=== PATIENT | female | born 2000 | race Two or more races ===

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

== ENCOUNTER 2021-01-21 13:30 | Emergency (ER) | payer OTHER ==
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
[2021-01-21] MEDS ORDERED: SODIUM CHLORIDE 0.9% 1,000 ML IV STA (14:07)
--- NOTE | 2021-01-21 14:08 | ED Physician Documentation ---
PD HPI ABD PAIN - Stated complaint Stated Complaint: ABDOMINAL PX - Chief complaint Chief Complaint: Abd Pain - History obtained from History obtained from: Patient - Additional information Additional information: 20-year-old woman G1, P1 status post about a month ago presents with 2 days of central abdominal pain, vomiting and diarrhea. No fevers or sick contacts. No history of other abdominal surgeries. Review of Systems Ten Systems: 10 systems reviewed and negative Constitutional: denies: Fever, Chills GI: reports: Abdominal Pain, Nausea, Diarrhea. 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 : None HEENT: None Psych: None Musculoskeletal: None Derm: None - Past Surgical History Past Surgical History: No - Present Medications Home Medications: Ambulatory Orders Medication Instructions Recorded Confirmed Loperamide [Imodium] 2 mg PO QID PRN #10 cap 01/21/21 Ondansetron Odt [Zofran] 4 mg TL Q6H PRN #10 tablet 01/21/21 No122/Iron/Folic Acid 1 tab PO DAILY 01/21/21 01/21/21 [ Multi Tablet] - Allergies Allergies/Adverse Reactions: Allergies Allergy/AdvReac Type Severity Reaction Status Date / Time No Known Drug Allergies Allergy Verified 01/21/21 13:45 - Social History Does the pt smoke?: No Smoking Status: Never smoker Does the pt drink ETOH?: No Does the pt have substance abuse?: No - Immunizations Immunizations are current?: No - POLST Patient has POLST: No PD ED PE NORMAL - Vitals Vital signs reviewed: Yes - General General: Alert and oriented X 3, No acute distress - HEENT HEENT: PERRL, EOMI - Neck Neck: Supple, no meningeal sign, No bony TTP - Cardiac Cardiac: RRR, No murmur - Respiratory Respiratory: No respiratory distress, Clear bilaterally - Abdomen Abdomen: Normal bowel sounds, Soft, Other (Focal but mild RLQ TTP) - Back Back: No CVA TTP, No spinal TTP - Derm Derm: Normal color, Warm and dry - Extremities Extremities: No edema, No calf tenderness / cord - Neuro Neuro: Alert and oriented X 3, Normal speech Results - Vitals Vitals: Vital Signs - 24 hr 01/21/21 13:40 Temperature 36.2 C L Heart Rate 93 Respiratory 14 Rate Blood Pressure 135/65 H O2 Saturation 99 Oxygen O2 Source Room air - Labs Labs: Laboratory Tests 01/21/21 01/21/21 01/21/21 13:50 13:55 13:55 WBC 8.3 RBC 4.20 Hgb 11.7 L Hct 36.2 L MCV 86.2 MCH 27.9 MCHC 32.3 RDW 12.7 Plt Count 411 MPV 8.1 Neut # (Auto) 5.3 Lymph # (Auto) 1.8 [place] # (Auto) 0.4 Eos # (Auto) 0.7 Baso # (Auto) 0.1 Absolute Nucleated RBC 0.00 Nucleated RBC % 0.0 Sodium 138 Potassium 3.3 L Chloride 104 Carbon Dioxide 24 Anion Gap 10.0 BUN 7 Creatinine 0.7 Estimated GFR (MDRD) 108 Glucose 117 H Calcium 9.0 Total Bilirubin 0.9 AST 25 ALT 17 Alkaline Phosphatase 103 Total Protein 8.2 Albumin 4.0 Globulin 4.2 Albumin/Globulin Ratio 1.0 Lipase 31 Urine Color YELLOW Urine Clarity CLEAR Urine pH 6.0 Ur Specific [place] 1.020 Urine Protein NEGATIVE Urine Glucose (UA) NEGATIVE Urine Ketones NEGATIVE Urine Occult Blood NEGATIVE Urine Nitrite NEGATIVE Urine Bilirubin NEGATIVE Urine Urobilinogen 0.2 (NORMAL) Ur Leukocyte Esterase NEGATIVE Ur Microscopic Review NOT INDICATED Urine Culture Comments NOT INDICATED PD MEDICAL DECISION MAKING - ED course ED course: 20-year-old woman presents with what sounds like gastroenteritis by history and initial evaluation. She was noted to be tender in the right lower quadrant and therefore labs and a CT were done. Labs were notable for a normal white count and CT showing a normal and appendix but mild inflammatory stranding in the right lower pelvis. Presume given the timing that this is related to post C- section status as to as opposed to the other differential diagnoses relayed on the radiologist read. She declined medications while here and infected and 1 medications to go home with but acquiesced to a as needed prescription for nausea and diarrhea. She was given close return precautions. Departure - Departure Disposition: Home, Self Care Clinical Impression: Vomiting Qualifiers: Vomiting type: unspecified Vomiting Intractability: non-intractable Nausea presence: with nausea Qualified Code(s): R11.2 - Nausea with vomiting, unspecified Abdominal pain Qualifiers: Abdominal location: right lower quadrant Qualified Code(s): R10.31 - Right lower quadrant pain Diarrhea Qualifiers: Diarrhea type: unspecified type Qualified Code(s): R19.7 - Diarrhea, unspecified Condition: Good Record reviewed to determine appropriate education?: Yes Instructions: ED Nausea Vomiting Prescriptions: Loperamide [Imodium] 2 mg PO QID PRN #10 cap PRN Reason: Diarrhea Ondansetron Odt [Zofran] 4 mg TL Q6H PRN #10 tablet PRN Reason: Nausea / Vomiting Comments: As discussed, there is some mild inflammation in your pelvis. Presume this is related to your a month ago. Your other symptoms are more consistent with what is called gastroenteritis. This is a disease that should resolve quickly. If not better in 24 hours, or anytime if worsening please return for reevaluation.
[2021-01-21 14:10] LABS: BASOPHILS # (AUTO) 0.1 10^3/uL (0.0-0.1); BASOPHILS % (AUTO) 0.8 %; EOSINOPHILS # (AUTO) 0.7 10^3/uL (0.0-0.7); EOSINOPHILS % (AUTO) 8.6 %; HCT - HEMATOCRIT 36.2 % (37.0-47.0); HGB - HEMOGLOBIN 11.7 g/dL (12.0-16.0); LYMPHOCYTES # (AUTO) 1.8 10^3/uL (1.5-3.5); LYMPHOCYTES % (AUTO) 21.4 %; MEAN CORPUSCULAR HEMOGLOBIN 27.9 pg (27.0-31.0); MEAN CORPUSCULAR HGB CONC 32.3 g/dL (32.0-36.0); MEAN CORPUSCULAR VOLUME 86.2 fL (81.0-99.0); MEAN PLATELET VOLUME 8.1 fL (7.9-10.8); MONOCYTES # (AUTO) 0.4 10^3/uL (0.0-1.0); MONOCYTES % (AUTO) 4.7 %; NEUTROPHILS # (AUTO) 5.3 10^3/uL (1.5-6.6); NEUTROPHILS % (AUTO) 64.3 %; PLT - PLATELET COUNT 411 10^3/uL (130-450); RED CELL DISTRIBUTION WIDTH 12.7 % (12.0-15.0); WHITE BLOOD COUNT 8.3 x10^3/uL (4.8-10.8)
[2021-01-21 14:10] LABS: BILIRUBIN,URINE NEGATIVE (NEGATIVE); GLUCOSE, URINE (UA) NEGATIVE (NEGATIVE); KETONES,URINE (UA) NEGATIVE (NEGATIVE); LEUKOCYTE ESTERASE, URINE NEGATIVE (NEGATIVE); NITRITE,URINE NEGATIVE (NEGATIVE); OCCULT BLOOD,URINE NEGATIVE (NEGATIVE); PROTEIN,URINE NEGATIVE (NEGATIVE); UROBILINOGEN,URINE 0.2 (NORMAL) E.U./dL (NORMAL)
[2021-01-21 14:14] LABS: CLARITY,URINE CLEAR (CLEAR)
[2021-01-21] MEDS ORDERED: IOPAMIDOL-300 100 ML VIAL ONE (14:15)
[2021-01-21 14:20] LABS: BILIRUBIN,TOTAL 0.9 mg/dL (0.2-1.0); CREATININE 0.7 mg/dL (0.4-1.0); POTASSIUM 3.3 mmol/L (3.5-5.0); TOTAL PROTEIN 8.2 g/dL (6.7-8.2)
[2021-01-21] MEDS ORDERED: IOPAMIDOL-300 100 ML VIAL IVP ONE (14:51)
--- NOTE | 2021-01-21 15:02 | CT Report ---
PROCEDURE: Abdomen/Pelvis W INDICATIONS: RLQ TTP iV only CONTRAST: IV CONTRAST: Isovue 300 ml: 100 PO CONTRAST: *NO PO CONTRAST TECHNIQUE: After the administration of IV contrast, 5 mm thick sections acquired from the diaphragms to the symp hysis. 5 mm thick coronal and sagittal reformats were acquired. For radiation dose reduction, the f ollowing was used: automated exposure control, adjustment of mA and/or kV according to patient size. COMPARISON: None. FINDINGS: ABDOMEN: Lung bases: Normal Heart:Normal. Liver: Normal. Gallbladder: Contracted otherwise unremarkable Bile ducts: Normal. Pancreas: Normal. Spleen: Normal. Adrenals: Normal. Kidneys and ureters: Normal. Stomach and duodenum: The appendix appears normal. However, more inferiorly there are few areas of fa t stranding seen in the right lower pelvis, adjacent to bowel loops and uterus/ovaries. The exact vaughn ology is unknown. No abscess is seen. No evidence of bowel obstruction. Other: No free fluid or air. There is mild stranding seen within the anterior pannus Abdominal nodes: Normal. Aorta: Normal. IVC: Normal. Ventral wall: Normal. PELVIS: Bladder: Decompressed Pelvic nodes: Normal. Inguinal: No hernia. Bones: No vertebral body compression fracture. No suspicious bone lesion. IMPRESSION: Appendix appears normal however mild inflammatory stranding is seen in the right lower pelvis. Exact etiology is unknown. Differential includes a low-grade enteritis, pelvic inflammatory disease or othe r gynecological condition. This could be further assessed with pelvic ultrasound as clinically warran audra. Please correlate with negative test as clinically appropriate. Reviewed by: Collins Nieves MD on 01/21/2021 3:00 PM PDT Approved by: Collins Nieves MD on 01/21/2021 3:00 PM PDT Station ID: [id number]
[2021-01-21 15:33] VITALS: BP 126/67
== END 2021-01-21 15:35 | disposition home or self-care (01) ==
LOC: ED 13:30
DX: R11.2 Nausea with vomiting, unspecified (principal); R10.31 Right lower quadrant pain; R19.7 Diarrhea, unspecified
CPT/HCPCS: 36415; 74177; 80053; 81003; 83690; 85025; 99283; 99284; Q9967; 81001; 87086

== ENCOUNTER 2021-06-18 10:25 | Emergency (ER) | payer OTHER ==
[2021-06-18 10:32] VITALS: BP 150/88
--- NOTE | 2021-06-18 11:03 | ED Physician Documentation ---
PD HPI ABD PAIN - Stated complaint Stated Complaint: ABD CRAMPING - Chief complaint Chief Complaint: Abd Pain - History obtained from History obtained from: Patient - Additional information Additional information: 20-year-old with history of , otherwise no history of abdominal surgeries presents with upper abdominal pain of 2 days duration. Not particularly worse after eating but states she always eats very little. She is never had it before. She has had some mild nausea with it but no vomiting or changes in bowel movements. She also notes 1 month of unrelated femur pain on the left that is kind of random and intermittent. 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 - Present Medications Home Medications: Ambulatory Orders Medication Instructions Recorded Confirmed Loperamide [Imodium] 2 mg PO QID PRN #10 cap 01/21/21 Ondansetron Odt [Zofran] 4 mg TL Q6H PRN #10 tablet 01/21/21 No122/Iron/Folic Acid 1 tab PO DAILY 01/21/21 01/21/21 [ Multi Tablet] Omeprazole 40 mg PO DAILY #30 cap 06/18/21 - Allergies Allergies/Adverse Reactions: Allergies Allergy/AdvReac Type Severity Reaction Status Date / Time No Known Drug Allergies Allergy Verified 06/18/21 10:30 - Social History Does the pt smoke?: No Smoking Status: Never smoker Does the pt drink ETOH?: No Does the pt have substance abuse?: No - Immunizations Immunizations are current?: No - POLST Patient has POLST: No PD ED PE NORMAL - Vitals Vital signs reviewed: Yes - General General: Alert and oriented X 3, No acute distress - HEENT HEENT: PERRL, EOMI - Neck Neck: Supple, no meningeal sign, No bony TTP - Cardiac Cardiac: RRR, No murmur - Respiratory Respiratory: No respiratory distress, Clear bilaterally - Abdomen Abdomen: Normal bowel sounds, Other (Focally tender in the right upper quadrant but not exquisitely tender. No epigastric or other abdominal tenderness.) - Back Back: No CVA TTP, No spinal TTP - Derm Derm: Normal color, Warm and dry - Extremities Extremities: Other (Very mild tenderness of the lateral thigh on the left which she notes is the site of her leg pain.) - Neuro Neuro: Alert and oriented X 3, Normal speech Results - Vitals Vitals: Vital Signs - 24 hr 06/18/21 10:30 Temperature 36.5 C Heart Rate 85 Respiratory 16 Rate Blood Pressure 150/88 H O2 Saturation 98 Oxygen O2 Source Room air - Labs Labs: Laboratory Tests 06/18/21 06/18/21 06/18/21 10:58 11:08 11:08 WBC 10.0 RBC 4.67 Hgb 12.9 Hct 39.1 MCV 83.7 MCH 27.6 MCHC 33.0 RDW 13.5 Plt Count 424 MPV 7.9 Neut # (Auto) 7.1 H Lymph # (Auto) 2.0 [place] # (Auto) 0.6 Eos # (Auto) 0.1 Baso # (Auto) 0.1 Absolute Nucleated RBC 0.00 Nucleated RBC % 0.0 Sodium 140 Potassium 3.8 Chloride 104 Carbon Dioxide 24 Anion Gap 12.0 BUN 8 Creatinine 0.7 Estimated GFR (MDRD) 108 Glucose 97 Calcium 9.4 Total Bilirubin 0.9 AST 24 ALT 20 Alkaline Phosphatase 91 Total Protein 8.1 Albumin 4.2 Globulin 3.9 Albumin/Globulin Ratio 1.1 Lipase 33 Urine Color YELLOW Urine Clarity HAZY Urine pH 6.0 Ur Specific [place] 1.025 Urine Protein NEGATIVE Urine Glucose (UA) NEGATIVE Urine Ketones NEGATIVE Urine Occult Blood NEGATIVE Urine Nitrite NEGATIVE Urine Bilirubin NEGATIVE Urine Urobilinogen 0.2 (NORMAL) Ur Leukocyte Esterase TRACE H Urine RBC 0-5 Urine WBC 11-25 H Ur Squamous Epith Cells MOD Squamous H Urine Bacteria Moderate H Ur Microscopic Review INDICATED Urine Culture Comments NOT INDICATED Urine HCG, Qual NEGATIVE - Rads (name of study) 2 view x-ray of the right femur was normal Radiology: EMP read contemporaneously abd sono Radiology: EMP read contemporaneously (neg) PD MEDICAL DECISION MAKING - ED course ED course: 20-year-old presents with epigastric pain and an ancillary complaint of left thigh pain, the thigh pain is likely related to iliotibial band syndrome given the location. She was given stretches to do for this diagnosis and a PPI for presumed gastritis noting normal labs and negative right upper quadrant ultrasound. Departure - Departure Disposition: 01 Home, Self Care Clinical Impression: Iliotibial band syndrome of left side Gastritis Qualifiers: Gastritis type: unspecified gastritis Chronicity: acute Gastritis bleeding: wi thout bleeding Qualified Code(s): K29.00 - Acute gastritis without bleeding Condition: Good Record reviewed to determine appropriate education?: Yes Instructions: ED Gastritis, Iliotibial Band Stretch Prescriptions: Omeprazole 40 mg PO DAILY #30 cap Comments: Do the stretches as shown for the left leg, I think that will help a lot over the next few days to week. Also [facility] the [facility] [place]. Return for new or worsening symptoms. Follow-up with your primary care physician, next available appointment.
[2021-06-18 11:13] LABS: BASOPHILS # (AUTO) 0.1 10^3/uL (0.0-0.1); BASOPHILS % (AUTO) 0.6 %; EOSINOPHILS # (AUTO) 0.1 10^3/uL (0.0-0.7); EOSINOPHILS % (AUTO) 1.4 %; HCT - HEMATOCRIT 39.1 % (37.0-47.0); HGB - HEMOGLOBIN 12.9 g/dL (12.0-16.0); LYMPHOCYTES % (AUTO) 20.3 %; MEAN CORPUSCULAR HEMOGLOBIN 27.6 pg (27.0-31.0); MEAN CORPUSCULAR VOLUME 83.7 fL (81.0-99.0); MEAN PLATELET VOLUME 7.9 fL (7.9-10.8); MONOCYTES # (AUTO) 0.6 10^3/uL (0.0-1.0); MONOCYTES % (AUTO) 6.2 %; NEUTROPHILS # (AUTO) 7.1 10^3/uL (1.5-6.6); NEUTROPHILS % (AUTO) 71.2 %; PLT - PLATELET COUNT 424 10^3/uL (130-450); RED BLOOD COUNT 4.67 10^6/uL (4.20-5.40); RED CELL DISTRIBUTION WIDTH 13.5 % (12.0-15.0)
[2021-06-18 11:14] LABS: BILIRUBIN,URINE NEGATIVE (NEGATIVE); GLUCOSE, URINE (UA) NEGATIVE (NEGATIVE); KETONES,URINE (UA) NEGATIVE (NEGATIVE); LEUKOCYTE ESTERASE, URINE TRACE (NEGATIVE); NITRITE,URINE NEGATIVE (NEGATIVE); OCCULT BLOOD,URINE NEGATIVE (NEGATIVE); PROTEIN,URINE NEGATIVE (NEGATIVE); UROBILINOGEN,URINE 0.2 (NORMAL) E.U./dL (NORMAL)
[2021-06-18 11:16] LABS: CLARITY,URINE HAZY (CLEAR); HCG UR QUAL NEGATIVE
[2021-06-18 11:25] LABS: BACTERIA,URINE Moderate /HPF (None Seen); RBC,URINE 0-5 /HPF (0-5); SQUAMOUS EPITHELIAL CELL,UR MOD Squamous (<= Few)
[2021-06-18 11:28] LABS: ALBUMIN 4.2 g/dL (3.2-5.5); ALBUMIN/GLOBULIN RATIO 1.1 (1.0-2.2); BILIRUBIN,TOTAL 0.9 mg/dL (0.2-1.0); CALCIUM 9.4 mg/dL (8.5-10.3); CREATININE 0.7 mg/dL (0.4-1.0); POTASSIUM 3.8 mmol/L (3.5-5.0); TOTAL PROTEIN 8.1 g/dL (6.7-8.2)
--- NOTE | 2021-06-18 12:08 | XRAY Report ---
PROCEDURE: Femur 2V LT INDICATIONS: leg pain TECHNIQUE: 4 views of the femur were acquired. COMPARISON: None. FINDINGS: Bones: No fractures or dislocations. No suspicious bony lesions. Soft tissues: No suspicious soft tissue calcifications or masses. IMPRESSION: No femoral fracture or dislocation. No gross soft tissue abnormality. Reviewed by: Remberto Laura MD on 06/18/2021 12:07 PM PDT Approved by: Remberto Laura MD on 06/18/2021 12:07 PM PDT Station ID: [id number]
--- NOTE | 2021-06-18 13:01 | Ultrasound Report ---
PROCEDURE: Abdomen Limited INDICATIONS: Right upper quadrant abdominal pain TECHNIQUE: Real-time focused scanning was performed of the abdomen, with image documentation. COMPARISON: CT abdomen and pelvis 01/21/2021 FINDINGS: Normal appearance of the liver. No intrahepatic or extra hepatic biliary ductal dilatation . Normally distended gallbladder without wall thickening or pericholecystic fluid. Visualized portion s of the pancreas are normal. Right kidney demonstrates no shadowing calculus or hydronephrosis. IMPRESSION: Normal study. Reviewed by: Jamari Muse MD on 06/18/2021 1:00 PM PDT Approved by: Jamari Muse MD on 06/18/2021 1:00 PM PDT Station ID: [id number]
== END 2021-06-18 12:48 | disposition home or self-care (01) ==
LOC: ED 10:25
DX: K29.00 Acute gastritis without bleeding (principal); M76.32 Iliotibial band syndrome, left leg
CPT/HCPCS: 36415; 80053; 81001; 81003; 81025; 83690; 85025; 87086; 99284

== ENCOUNTER 2021-07-20 11:13 | Emergency (ER) | payer OTHER ==
[2021-07-20 11:29] VITALS: BP 136/77
[2021-07-20 11:55] LABS: RAPID STREP SCREEN Negative (Negative)
[2021-07-20] MEDS ORDERED: DEXAMETHASONE 10 MG/ML VIAL PO STA (13:17)
[2021-07-20] MEDS ORDERED: CHERRY SYRUP 10 ML UDC PO ONE (13:17)
[2021-07-20] MEDS ORDERED: BENZONATATE 100 MG CAPSULE PO STA (13:17)
--- NOTE | 2021-07-20 13:29 | ED Physician Documentation ---
PD HPI URI - Stated complaint Stated Complaint: SORE THROAT/BACK PX - Chief complaint Chief Complaint: Heent - History obtained from History obtained from: Patient - History of Present Illness Timing - onset: How many weeks ago (1) Timing duration: Weeks (1) Timing details: Gradual onset Pain level max: 4 Pain level now: 3 Associated symptoms: Nasal congestion, Rhinorrhea, Sore throat, Dry cough. 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 HEENT: None Psych: None Musculoskeletal: None Derm: None - Past Surgical History Past Surgical History: No /BACK 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: section - Present Medications Home Medications: Ambulatory Orders Medication Instructions Recorded Confirmed Benzonatate [Tessalon] 200 mg PO TID PRN #30 cap 07/20/21 Ibuprofen [Motrin] 800 mg PO Q8H PRN #30 tablet 07/20/21 - Allergies Allergies/Adverse Reactions: Allergies Allergy/AdvReac Type Severity Reaction Status Date / Time No Known Drug Allergies Allergy Verified 07/20/21 11:25 - Social History Does the pt smoke?: No Smoking Status: Never smoker Does the pt drink ETOH?: No Does the pt have substance abuse?: No - Immunizations Immunizations are current?: No - POLST Patient has POLST: No PD ED PE NORMAL - Vitals Vital signs reviewed: Yes - General General: Alert and oriented X 3, No acute distress - HEENT HEENT: Ears normal, Moist mucous membranes, Pharynx benign - Neck Neck: Supple, no meningeal sign, No adenopathy - Cardiac Cardiac: RRR - Respiratory Respiratory: No respiratory distress, Clear bilaterally - Abdomen Abdomen: Soft, Non tender, Non distended - Derm Derm: Warm and dry, No rash - Neuro Neuro: Alert and oriented X 3 - Psych Psych: Normal mood, Normal affect Results - Vitals Vitals: Vital Signs - 24 hr 07/20/21 11:25 Temperature 36.8 C Heart Rate 82 Respiratory 18 Rate Blood Pressure 136/77 H O2 Saturation 99 Oxygen O2 Source Room air - Labs Labs: Laboratory Tests 07/20/21 11:35 Group A Strep Rapid Negative PD MEDICAL DECISION MAKING - ED course Complexity details: reviewed results, considered differential, d/w patient ED course: 20-year-old female presents to the emergency department what appears to be a viral upper respiratory infection with viral pharyngitis. She is not Covid vaccinated. Covid swab performed. Given dexamethasone and Tessalon. Rapid strep is negative. Patient is very well-appearing, nontoxic. Afebrile. No hypoxia. No respiratory distress. Patient counseled regarding signs and symptoms for which I believe and urgent re-evaluation would be necessary. Patient with good understanding of and agreement to plan and is comfortable going home at this time This document was made in part using voice recognition software. While efforts are made to proofread this document, sound alike and grammatical errors may occur. Departure - Departure Disposition: 01 Home, Self Care Clinical Impression: Viral URI with cough Condition: Good Instructions: ED Viral Syndrome Follow-Up: TOMY KAHN ARNP [Primary Care Provider] - Within 1 week Prescriptions: Ibuprofen [Motrin] 800 mg PO Q8H PRN #30 tablet PRN Reason: PAIN &/OR FEVER Benzonatate [Tessalon] 200 mg PO TID PRN #30 cap PRN Reason: Cough Comments: Your prescriptions were sent to [facility] in [place]. Drink plenty of fluids and rest. Return if you worsen. Follow-up with your doctor as needed for further care. You have a Covid test pending. You need to self quarantine until the result is done and negative. The results should be done in 24-48 hours. We will call with a positive result, the fastest way to get a negative result for confirmation though is to go to the hospital website at [email or web address], click on the my [email or web address] tab and sign up for the patient portal. If any of your friends and/or family need to be tested, they can call the hospital at [phone] for an appointment to have their Covid test.
== END 2021-07-20 13:56 | disposition home or self-care (01) ==
LOC: ED 11:13
DX: J06.9 Acute upper respiratory infection, unspecified (principal); Z20.822 Contact with and (suspected) exposure to COVID-19
CPT/HCPCS: 87070; 87430; 87635; 99282; 99283; A9270

== ENCOUNTER 2021-07-27 12:46 | Emergency (ER) | payer OTHER ==
[2021-07-27 13:47] LABS: CALCIUM 9.4 mg/dL (8.5-10.3); CREATININE 0.7 mg/dL (0.4-1.0); POTASSIUM 4.1 mmol/L (3.5-5.0)
--- NOTE | 2021-07-27 14:07 | ED Physician Documentation ---
PD HPI NVD - Stated complaint Stated Complaint: N/V - Chief complaint Chief Complaint: Abd Pain - History obtained from History obtained from: Patient - History of Present Illness Timing - onset: How many days ago (2) Timing - duration: Days (2) Timing - details: Abrupt onset, Still present Associated symptoms: Abdominal pain (intermittent cramping; no consistent pains.), Loss of appetite. No: Fever, Near syncope / syncope Contributing factors: Other (had some congestion and mild cough last week but has resolved. No unusual foods. Her has not been sick but was home from work 2 days to help with their infant at home.). No: Sick contact, Bad food, Recent antibiotics Improved by: No: Vomiting Worsened by: Eating Similar symptoms before: Has not had sx before Recently seen: Not recently seen Review of Systems Constitutional: denies: Fever, Chills Nose: denies: Rhinorrhea / runny nose, Congestion Throat: denies: Sore throat Respiratory: denies: Cough (not currently, but had couple days of cough last week.) GI: reports: Nausea, Vomiting (multiple times first night and 4 times daily yesterday.), Diarrhea (loose to watery, 3-4 times daily for the 2 days.) Skin: denies: Rash, Lesions Neurologic: reports: Generalized weakness. 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 - Present Medications Home Medications: Ambulatory Orders Medication Instructions Recorded Confirmed Loperamide [Imodium] 2 - 4 mg PO Q6H PRN #16 cap 07/27/21 Ondansetron Odt [Zofran] 4 mg TL Q6H PRN #10 tablet 07/27/21 - Allergies Allergies/Adverse Reactions: Allergies Allergy/AdvReac Type Severity Reaction Status Date / Time No Known Drug Allergies Allergy Verified 07/27/21 13:11 - Social History Does the pt smoke?: No Smoking Status: Never smoker Does the pt drink ETOH?: No Does the pt have substance abuse?: No - Immunizations Immunizations are current?: No - POLST Patient has POLST: No PD ED PE NORMAL - Vitals Vital signs reviewed: Yes - General General: Alert and oriented X 3, No acute distress, Well developed/nourished - HEENT HEENT: Pharynx benign - Neck Neck: Supple, no meningeal sign, No adenopathy - Cardiac Cardiac: RRR, No murmur - Respiratory Respiratory: Clear bilaterally - Abdomen Abdomen: Normal bowel sounds, Soft, Non tender, Non distended, No organomegaly - Back Back: No CVA TTP - Derm Derm: Normal color, Warm and dry - Neuro Neuro: Alert and oriented X 3, No motor deficit, Normal speech Results - Vitals Vitals: Vital Signs - 24 hr 07/27/21 07/27/21 13:11 14:35 Temperature 36.3 C L 36.5 C Heart Rate 89 88 Respiratory 18 16 Rate Blood Pressure 137/83 H 130/80 O2 Saturation 98 98 Oxygen O2 Source Room air - Labs Labs: Laboratory Tests 07/27/21 07/27/21 13:30 14:10 Sodium 136 Potassium 4.1 Chloride 100 L Carbon Dioxide 25 Anion Gap 11.0 BUN 11 Creatinine 0.7 Estimated GFR (MDRD) 108 Glucose 90 Calcium 9.4 Urine Color YELLOW Urine Clarity CLEAR Urine pH 6.0 Ur Specific [place] 1.025 Urine Protein NEGATIVE Urine Glucose (UA) NEGATIVE Urine Ketones NEGATIVE Urine Occult Blood NEGATIVE Urine Nitrite NEGATIVE Urine Bilirubin NEGATIVE Urine Urobilinogen 0.2 (NORMAL) Ur Leukocyte Esterase NEGATIVE Ur Microscopic Review NOT INDICATED Urine Culture Comments NOT INDICATED Urine HCG, Qual NEGATIVE PD MEDICAL DECISION MAKING - ED course Complexity details: considered differential (likely viral illness or food related. No tenderness on exam. Does not seem likely GB nor appy. Shared decision to not do imaging. ), d/w patient Departure - Departure Disposition: 01 Home, Self Care Clinical Impression: Nausea vomiting and diarrhea Condition: Stable Record reviewed to determine appropriate education?: Yes Instructions: ED Diet Vomiting Diarrhea Follow-Up: [facility] [Provider Group] Prescriptions: Loperamide [Imodium] 2 - 4 mg PO Q6H PRN #16 cap PRN Reason: Diarrhea Ondansetron Odt [Zofran] 4 mg TL Q6H PRN #10 tablet PRN Reason: Nausea / Vomiting Comments: Small frequent fluids and bland food. Use ondansetron if needed for nausea symptoms and Imodium as needed for diarrhea over the next day or 2. I would anticipate improvement in the next day or 2. Tylenol if needed for mild cramps. Recheck if not improved over the next couple of days. I transmitted your prescriptions to [facility] in [place]. Forms: Activity restrictions Discharge Date/Time: 07/27/21 14:35
[2021-07-27 14:22] LABS: BILIRUBIN,URINE NEGATIVE (NEGATIVE); GLUCOSE, URINE (UA) NEGATIVE (NEGATIVE); KETONES,URINE (UA) NEGATIVE (NEGATIVE); LEUKOCYTE ESTERASE, URINE NEGATIVE (NEGATIVE); NITRITE,URINE NEGATIVE (NEGATIVE); OCCULT BLOOD,URINE NEGATIVE (NEGATIVE); PROTEIN,URINE NEGATIVE (NEGATIVE); UROBILINOGEN,URINE 0.2 (NORMAL) E.U./dL (NORMAL)
[2021-07-27 14:24] LABS: CLARITY,URINE CLEAR (CLEAR); HCG UR QUAL NEGATIVE
[2021-07-27] MEDS ORDERED: DIPHENOX/ATROPINE 2.5/0.025 MG TABLET PO STA (14:24)
[2021-07-27] MEDS ORDERED: ONDANSETRON ODT 4 MG TABLET TL STA (14:24)
[2021-07-27 14:36] VITALS: BP 130/80
== END 2021-07-27 14:35 | disposition home or self-care (01) ==
LOC: ED 12:46
DX: R11.2 Nausea with vomiting, unspecified (principal); R19.7 Diarrhea, unspecified
CPT/HCPCS: 36415; 80048; 81003; 81025; 99283; A9270; Q0162; 81001; 85025; 87086